=== PATIENT | male | born 1990 | race Caucasian/White ===

== ENCOUNTER → 2021-05-18 14:44 | Outpatient (CLI) | payer OTHER, SELFPAY ==
--- NOTE | ~2021-05-18 | US_ITS ---
EXAMINATION: US abdomen limited EXAM DATE: 05/18/2021 15:08 INDICATION: Abnormal levels of other serum enzymes. TECHNIQUE: Multiple grayscale and Doppler images of the abdomen right upper quadrant were obtained (b y a technologist who performed the scan) and subsequently reviewed. There is no prior study for kishan hoyos. FINDINGS: The pancreatic head and body are normal in appearance. The pancreatic tail is not visualized. There is echogenic liver parenchyma, hepatic steatosis. There is no evidence of intrahepatic biliary duct dilation. Portal venous flow was seen in the hepatopedal, normal direction and has normal Doppler w aveform. No right-sided hydronephrosis. Common bile duct measures 4 mm, which is normal. Gallbladder is contracted. No cholelithiasis or per icholecystic fluid. There is focal fatty sparing of the liver. No sonographic Fu sign demonstrat ed. IMPRESSION: 1. Contracted but otherwise unremarkable gallbladder. 2. Hepatic steatosis. Reviewed, dictated and finalized at location B.
== END ==
PROVIDERS: Visit Provider Student in an Organized Health Care Education/Training Program
DX: R74.8 Abnormal levels of other serum enzymes (principal); K76.0 Fatty (change of) liver, not elsewhere classified
CPT/HCPCS: 76705